=== PATIENT | male | born 1940 | race Caucasian/White ===

== ENCOUNTER → 2025-08-26 | Day surgery (SDC) | payer MEDICARE ==
[~2025-08-26] MED LIST: FLU (Fluad Triv) 25-26 (65UP)PF 45 MCG/0.5 ML Syringe IM ONE; PROPOFOL 20 ML ONE
[2025-08-26 10:48] VITALS: BP 150/95; TEMP 98
== END ==
LOC: CSHSDC 08:35
PROVIDERS: ATTEND Specialist
PROC: 5A2204Z Restoration of Cardiac Rhythm, Single (ICD-10-PCS; principal; 2025-08-26)
DX: I48.92 Unspecified atrial flutter (principal); I11.0 Hypertensive heart disease with heart failure; I50.32 Chronic diastolic (congestive) heart failure; E78.2 Mixed hyperlipidemia; I34.0 Nonrheumatic mitral (valve) insufficiency; D50.9 Iron deficiency anemia, unspecified; Z87.891 Personal history of nicotine dependence; Z90.49 Acquired absence of other specified parts of digestive tract; Z79.899 Other long term (current) drug therapy
CPT/HCPCS: 92960; 93005; J2704; 93010